=== PATIENT | female | born 1950 | race Caucasian/White ===

== ENCOUNTER 2017-12-28 14:03 | Emergency (ER) | payer MEDICARE, BC ==
[2017-12-28] MEDS ORDERED: Ketorolac 60 MG/2 ML SDV IM ONE (14:45)
--- NOTE | 2017-12-28 14:47 | EDM.PDOC ---
ED HPI GENERAL MEDICAL PROBLEM - General Chief Complaint: Lower Extremity Injury/Pain Stated Complaint: LT KNEE Time Seen by Provider: 12/28/17 14:30 Source of Information: Reports: Patient History Limitations: Reports: No Limitations - History of Present Illness INITIAL COMMENTS - FREE TEXT/NARRATIVE: Pt states that over the last several days her left knee has become more painful especially when she tries to weight bear on it. Has only noted minimal swelling to the area. Has been doing a lot more walking as she just returned from vacation in [place]. Pain is mainly to the back of the knee but when she steps down it will be sharp pain into the middle of knee. Has not had any falls. Has also been doing more golfing but she denied any other pain. Has not been red or warm to touch. Left Knee Pain Score (Numeric/FACES): 2 - Related Data Allergies Allergy/AdvReac Type Severity Reaction Status Date / Time Penicillins Allergy Cannot Verified 12/28/17 14:17 Remember Home Meds: Home Meds Aspirin [Adult Low Dose Aspirin EC] 81 mg PO DAILY 02/27/14 [History] Calcium Citrate/Vitamin D3 [Calcium Citrate - Vit D3 Tab] 1 tab PO DAILY [History] Calcium Citrate/Vitamin D3 [Calcium Citrate-Vit D3 Tablet] 1 tab PO DAILY [History] Multivitamin [Multivitamins] 1 tab PO DAILY 12/28/17 [History] Phytomega 1 tab PO DAILY 12/28/17 [History] Replenex 1 tab PO DAILY 12/28/17 [History] Ubidecarenone [Co Q-10] 1 tab PO DAILY 12/28/17 [History] atorvaSTATin [Lipitor] 10 mg PO DAILY 12/28/17 [History] Social & Family History - Tobacco Use Smoking Status *Q: Current Every Day Smoker Years of Tobacco use: 48 Packs/Tins Daily: 0.2 - Living Situation & Occupation Living situation: Reports: , with Spouse Occupation: Retired Review of Systems - Review of Systems Review Of Systems: See Below Constitutional: Reports: No Symptoms Musculoskeletal: Reports: Joint Pain ED EXAM, GENERAL - Physical Exam Exam: See Below Exam Limited By: No Limitations General Appearance: Alert, WD/WN, Mild Distress Head: Atraumatic, Normocephalic Extremities: Normal Inspection, Limited Range of Motion (with flexion of knee. Not red or warm to touch. No swelling noted. Tender with palpation to the joint spaces bilaterally.) Skin Exam: Warm, Dry Course - Vital Signs Last Recorded V/S: Last Vital Signs Temp 97.8 F 12/28/17 14:10 Pulse 86 12/28/17 14:10 Resp 18 12/28/17 14:10 BP 143/74 H 12/28/17 14:10 Pulse Ox 98 12/28/17 14:10 - Orders/Labs/Meds Meds: Medications Discontinued Medications Generic Name Dose Route Start Last Admin Trade Name Flavio PRN Reason Stop Dose Admin Ketorolac Tromethamine 60 mg 12/28/17 14:45 12/28/17 14:50 Toradol IM 12/28/17 14:46 60 mg ONETIME ONE Administration Departure - Departure Time of Disposition: 14:42 Disposition: Home, Self-Care 01 Condition: Good Clinical Impression: Bursitis of left knee Qualifiers: Knee bursitis location: prepatellar bursitis Qualified Code(s): M70.42 - Prepatellar bursitis, left knee - Discharge Information Instructions: Prepatellar Bursitis Referrals: Shazia Ramirez NP [Primary Care Provider] - Forms: ED Department Discharge Additional Instructions: Medrol Dosepak as directed on the package Ice to knee to help with the pain and swelling Elevate and rest knee as much as possible over the next several days until pain improves If pain does not subside then may need to have MRI. Please make recheck appt in the clinic if this happens. Advil 600 mg 3-4 times a day for the pain as needed. - Problem List & Annotations (1) Bursitis of left knee SNOMED Code(s): 7980926413383015 Code(s): M70.52 - OTHER BURSITIS OF KNEE, LEFT KNEE Status: Acute Priority: High Qualifiers: Knee bursitis location: prepatellar bursitis Qualified Code(s): M70.42 - Prepatellar bursitis, left knee - Problem List Review Problem List Initiated/Reviewed/Updated: Yes
== END 2017-12-28 15:02 | disposition home or self-care (01) ==
LOC: CC.ED 14:03
DX: M70.42 Prepatellar bursitis, left knee (principal); F17.210 Nicotine dependence, cigarettes, uncomplicated; Z88.0 Allergy status to penicillin; Z79.82 Long term (current) use of aspirin; Z79.899 Other long term (current) drug therapy
CPT/HCPCS: 73560-LT; 96372; 99283; J1885